=== PATIENT | female | born 1955 | race Caucasian/White ===

== ENCOUNTER 2021-09-27 10:10 | Emergency (ER) | payer BC, OTHER ==
[2021-09-27 11:10] LABS: #Basophils 0.1 thou/uL (0.0-0.2); #Eosinphils 0.1 thou/uL (0.0-0.7); #Lymphocytes 0.7 thou/uL (1.20-3.40); #Monocytes 0.4 thou/uL (0.11-0.59); #Neutrophils 3.8 thou/uL (1.40-6.50); %Basophils 1.3 % (0.0-1.0); %Eosinophils 2.1 % (0.0-10.0); %Lymphocytes 14.6 % (21.0-51.0); %Monocytes 7.4 % (0.0-10.0); %Neutrophils 74.5 % (42.0-75.0); Hemoglobin 15.3 g/dL (12.0-16.0); Mean Corpuscular HGB CONC 30.9 g/dL (32.0-36.0); Mean Corpuscular Hemoglobin 28.1 pg (27.0-31.0); Mean Corpuscular Volume 90.9 fL (78.0-98.0); Mean Platelet Volume 7.4 fL (7.4-10.4); Platelet Count 245 thou/uL (130-400); RBC Distribution Width 12.8 % (11.5-14.5); Red Blood Cell (RBC) Count 5.44 mill/uL (4.20-5.40); White Blood Cell (WBC) Count 5.1 thou/uL (4.8-10.8)
[2021-09-27 11:27] LABS: ALT (SGPT) 16 U/L (8-55); AST (SGOT) 14 U/L (5-34); Albumin 4.4 g/dL (3.4-4.8); Alkaline Phosphatase 85 U/L (40-110); Anion Gap 13 mmol/L (10-20); BUN (Urea Nitrogen) 9 mg/dL (9.8-20.1); Bilirubin, Total 0.5 mg/dL (0.2-1.2); CK (CPK) 53 U/L (29-168); Calc. Creatinine Clearance 0 mL/min (70-130); Calcium 9.1 mg/dL (7.8-10.44); Carbon Dioxide 22 mmol/L (23-31); Chloride 107 mmol/L (98-107); Globulin 1.9 g/dL (2.4-3.5); Glucose 113 mg/dL (80-115); Potassium 4.2 mmol/L (3.5-5.1); Protein, Total 6.3 g/dL (5.8-8.1); Sodium 138 mmol/L (136-145)
[2021-09-27] MEDS ORDERED: Ketorolac Tromethamine 30 MG/ML VIAL ONE (12:11)
[2021-09-27 13:40] LABS: Troponin I Less than 0.010 ng/mL (< 0.028)
== END 2021-09-27 13:55 | disposition home or self-care (01) ==
LOC: NAV ERS 10:10
DX: U07.1 COVID-19 (principal); R07.9 Chest pain, unspecified; I10 Essential (primary) hypertension; E11.9 Type 2 diabetes mellitus without complications; F17.210 Nicotine dependence, cigarettes, uncomplicated; Z79.84 Long term (current) use of oral hypoglycemic drugs; Z79.899 Other long term (current) drug therapy
CPT/HCPCS: 36415; 71045; 80053; 82550; 84484; 85025; 93005; 96374; J1885

== ENCOUNTER 2024-05-02 04:18 | Emergency (ER) | payer MEDICARE, BC ==
[2024-05-02 05:01] LABS: #Basophils 0.1 thou/uL (0.0-0.2); #Lymphocytes 0.3 thou/uL (1.20-3.40); #Monocytes 0.4 thou/uL (0.11-0.59); #Neutrophils 9.5 thou/uL (1.40-6.50); %Basophils 0.5 % (0.0-1.0); %Eosinophils 0.4 % (0.0-10.0); %Monocytes 3.8 % (0.0-10.0); %Neutrophils 92.2 % (42.0-75.0); Hematocrit 50.3 % (36.0-47.0); Hemoglobin 15.8 g/dL (12.0-16.0); Mean Corpuscular HGB CONC 31.4 g/dL (32.0-36.0); Mean Corpuscular Hemoglobin 26.9 pg (27.0-31.0); Mean Corpuscular Volume 85.7 fl (78.0-98.0); Mean Platelet Volume 7.4 fL (7.4-10.4); Platelet Count 224 10x3/uL (130-400); Red Blood Cell (RBC) Count 5.87 mill/uL (4.20-5.40); White Blood Cell (WBC) Count 10.3 10x3/uL (4.8-10.8)
[2024-05-02] MEDS ORDERED: Ondansetron PF 4 MG/2 ML Vial ONE (05:04)
[2024-05-02] MEDS ORDERED: Loperamide HCl 2 MG CAP ONE (05:04)
[2024-05-02] MEDS ORDERED: Sodium Chloride 0.9% 1,000 ML ONE (05:04)
[2024-05-02 05:15] LABS: Anion Gap 18 mmol/L (10-20); BUN (Urea Nitrogen) 22 mg/dL (9.8-20.1); Calc. Creatinine Clearance 0 mL/min (70-130); Carbon Dioxide 21 mmol/L (23-31); Chloride 104 mmol/L (98-107); Potassium 3.7 mmol/L (3.5-5.1); Sodium 139 mmol/L (136-145)
[2024-05-02 05:16] LABS: ALT (SGPT) 26 U/L (8-55); AST (SGOT) 17 U/L (5-34); Albumin 4.3 g/dL (3.4-4.8); Alkaline Phosphatase 76 U/L (40-110); Bilirubin, Total 0.7 mg/dL (0.2-1.2); Calcium 9.7 mg/dL (7.8-10.44); Estimated GFR 92; Globulin 2.6 g/dL (2.4-3.5); Glucose 126 mg/dL (80-115); Lipase 21 U/L (8-78); Protein, Total 6.9 g/dL (5.8-8.1)
[2024-05-02 05:48] LABS: Bilirubin Small (Negative); Blood, Urine Negative (Negative); Clarity Clear (Clear); Glucose, Urine (Dipstick) Negative (Negative); Ketone, Urine 40 mg/dL (Negative); Leukocyte Negative (Negative); Nitrite Negative (Negative); Protein, Urine (Dipstick) Negative (Neg-Trace); Specific Gravity, Urine 1.025 (1.005-1.030); Urobilinogen 0.2 mg/dL (Less than 2)
[2024-05-02 05:50] LABS: Bacteria/HPF 1+ HPF (None Seen); CAUTI Indications for Culture Acute Hematuria; RBC/HPF 0-3 HPF (0-3); Squamous Epithelial 0-3 HPF (0-3)
[2024-05-02 05:53] LABS: Urine Culture Reflex No No
== END 2024-05-02 06:20 | disposition home or self-care (01) ==
LOC: NAV ERS 04:18
DX: K52.9 Noninfective gastroenteritis and colitis, unspecified (principal); E11.9 Type 2 diabetes mellitus without complications; F17.210 Nicotine dependence, cigarettes, uncomplicated; I10 Essential (primary) hypertension; Z79.84 Long term (current) use of oral hypoglycemic drugs; Z79.899 Other long term (current) drug therapy
CPT/HCPCS: 80053; 81001; 83690; 85025; 93005; J2405; J7030; 96361; 96374